=== PATIENT | female | born 1980 | race Asian ===

== ENCOUNTER 2016-06-07 13:11 | Emergency (ER) | payer OTHER ==
[~2016-06-07] VITALS: Ht 152.4 cm; Wt 69.0 kg
[~2016-06-07 13:11] MED LIST: ALPR-138 PO; ARIP2 PO; BACTOIN; FLUO-1 PO; LORTA5 PO; SULF1TAB47 PO
[2016-06-07 13:18] VITALS: BP 111/67; PULSE 69; RESP 16; TEMP 98.7; O2SAT 100
[2016-06-07] MEDS ORDERED: FLUO-1 PO (13:29)
--- NOTE | 2016-06-07 13:32 | PD ---
HPI Chief Complaint: Skin Problem Time Seen by Provider: 13:32 Travel History International Travel<30 days: No Contact w/Intl Traveler<30days: No Traveled to known affect area: No History of Present Illness HPI 36-year-old female presents to the ED for evaluation of 10 day history of rectal pain. Gradual onset. Patient endorses scant blood on the paper and in the bowl over the last few days. Last bowel movement today, painful. Patient states that she "did a cleanse" and thinks that this may have worsened her problem. No treatment attempted at home. Patient denies chronic health problems, takes no daily medications. NKDA. PFSH Past Medical History Hx Anticoagulant Therapy: No Anxiety: Yes Depression: Yes Cancer: No Cardiovascular Problems: No Diabetes: No Diminished Hearing: No Endocrine: No Gastrointestinal Disorders: No Genitourinary: No Immune Disorder: No Implanted Vascular Access Dvce: No Musculoskeletal: No Neurologic: Yes Psychiatric: Yes Reproductive: No Respiratory: Yes Migraines: Yes Sleep Apnea: Yes Influenza Vaccination: Yes ?: Not : 3 Para: 2 Miscarriage: 1 Tubal Ligation: Yes Past Surgical History Abdominal Surgery: Yes (GASTRIC BYPASS 02/01/12) Gynecologic Surgery: Yes (ENDOMETRIAL CURRETAGE) Pacemaker: No Other Surgery: Yes Social History Alcohol Use: No Tobacco Use: No Substance Use: No Allergies-Medications (Allergen,Severity, Reaction): Coded Allergies: No Known Allergies (Unverified , 06/07/16) Reported Meds & Prescriptions Reported Meds & Active Scripts Active Hydrocortisone Rectal 1% Cream 1 Applic RECTAL Q6H PRN Reported Prozac (Fluoxetine HCl) 10 Mg Cap 10 Mg PO DAILY Review of Systems Except as stated in HPI: all other systems reviewed are Neg Physical Exam Narrative GENERAL: Well-nourished, well-developed patient. SKIN: Warm and dry. HEAD: Normocephalic. EYES: No scleral icterus. No injection or drainage. NECK: Supple, trachea midline. No JVD or lymphadenopathy. CARDIOVASCULAR: Regular rate and rhythm without murmurs, gallops, or rubs. RESPIRATORY: Breath sounds equal bilaterally. No accessory muscle use. GASTROINTESTINAL: Abdomen soft, non-tender, nondistended. RECTAL EXAM: Large, tender, thrombosed, external hemorrhoid noted in the 12 o' clock position. MUSCULOSKELETAL: No cyanosis, or edema. BACK: Nontender without obvious deformity. No CVA tenderness. Data Data Last Documented VS Vital Signs Date Time Temp Pulse Resp B/P Pulse Ox O2 Delivery O2 Flow Rate FiO2 06/07/16 13:18 98.7 69 16 111/67 100 MDM Medical Decision Making Medical Screen Exam Complete: Yes Emergency Medical Condition: Yes Differential Diagnosis External hemorrhoid versus thrombosed hemorrhoid versus rectal prolapse versus other Narrative Course 36-year-old female presents to the ED for evaluation of 10 day history of rectal pain. Gradual onset. Patient endorses scant blood on the paper and in the bowl over the last few days. Last bowel movement today, painful. Patient states that she "did a cleanse" and thinks that this may have worsened her problem. No treatment attempted at home. Vitals reviewed. Physical exam reveals a large, tender, thrombosed, external hemorrhoid noted in the 12 o' clock position. Patient was prescribed hydrocortisone rectal cream, instructed to apply sparingly 4 times a day, increase fiber intake, drink plenty of water, follow up with the colorectal surgeon. She was provided with Dr. Bryant's office number and address. She indicated understanding of the instructions and is amenable to plan of care. She is stable and discharged home. Diagnosis Primary Impression: Thrombosed external hemorrhoid Referrals: Jean Bryant MD Patient Instructions: General Instructions, Thrombosed Hemorrhoid (ED) Additional Instructions: Rest, hydrate. Apply rectal hydrocortisone sparingly 3-4 times a day as needed for pain and inflammation. Increase fiber intake to encourage daily bowel habits. Stool softeners as needed for constipation. Follow-up with Dr. Bryant this week as discussed. Return to the ED for any urgent or emergent medical condition. Med/Other Pt SpecificInfo: Prescription(s) given Scripts Hydrocortisone Rectal 1% Cream1 Applic RECTAL Q6H PRN (PAIN/INFLAMMATION) #30 GM Ref 0 Prov:Loretta Hurtado DO 06/07/16 Disposition: 01 DISCHARGE HOME Condition: Stable Thalia Reyes Jun 07, 2016 13:32
[2016-06-07] MEDS ORDERED: [UNRECOGNIZED DRUG - CODE] RECTAL (13:45)
== END 2016-06-07 14:01 | disposition home or self-care (01) ==
LOC: PHEFT 13:11
DX: K62.89 Other specified diseases of anus and rectum (principal); F41.8 Other specified anxiety disorders; K64.5 Perianal venous thrombosis; Z98.84 Bariatric surgery status
CPT/HCPCS: 99283